=== PATIENT | female | born 1980 | race African-American/Black ===

== ENCOUNTER 2016-10-26 10:53 | Emergency (ER) | payer BC ==
--- NOTE | 2016-10-26 11:23 | ER Document Report ---
ED General - General Chief Complaint: Flank Pain Stated Complaint: URINARY PAIN, BACK PAIN TRAVEL OUTSIDE OF THE [place] IN LAST 30 DAYS: No - HPI Patient complains to provider of: urinary frequency back pain Notes: Patient coming over urine infection back pain states her urine is very dark possible blood-tinged. Patient denies history kidney stones. Patient states similar to urinary tract infections in the past. Denies fevers chills denies any vaginal bleeding vaginal discharge. - Related Data Allergies/Adverse Reactions: No Known Allergies Allergy (Unverified 10/26/16 11:11) Past Medical History - Social History Smoking Status: Unknown if Ever Smoked Family History: Reviewed & Not Pertinent Patient has suicidal ideation: No Patient has homicidal ideation: No Renal/ Medical History: Denies: Hx Peritoneal Dialysis Review of Systems - Review of Systems Constitutional: No symptoms reported EENT: No symptoms reported Cardiovascular: No symptoms reported Respiratory: No symptoms reported Gastrointestinal: No symptoms reported Genitourinary: Dysuria Female Genitourinary: No symptoms reported Musculoskeletal: No symptoms reported Skin: No symptoms reported Hematologic/Lymphatic: No symptoms reported Neurological/Psychological: No symptoms reported -: Yes All other systems reviewed and negative Physical Exam - Vital signs Vitals: Temp Pulse Resp BP Pulse Ox 99 F 65 16 115/62 100 10/26/16 11:10 10/26/16 11:10 10/26/16 11:10 10/26/16 11:10 10/26/16 11:10 Interpretation: Normal - General General appearance: Appears well, Alert - HEENT Head: Normocephalic, Atraumatic Eyes: Normal Pupils: PERRL - Respiratory Respiratory status: No respiratory distress Chest status: Nontender Breath sounds: Normal Chest palpation: Normal - Cardiovascular Rhythm: Regular Heart sounds: Normal auscultation Murmur: No - Abdominal Inspection: Normal Distension: No distension Bowel sounds: Normal Tenderness: Nontender Organomegaly: No organomegaly - Back Back: Normal, Nontender - Extremities General upper extremity: Normal inspection, Nontender, Normal color, Normal ROM , Normal temperature General lower extremity: Normal inspection, Nontender, Normal color, Normal ROM , Normal temperature, Normal weight bearing. No: Jany's sign - Neurological Neuro grossly intact: Yes Cognition: Normal Orientation: AAOx4 Lauri Coma Scale Eye Opening: Spontaneous [place] Coma Scale Verbal: Oriented [place] Coma Scale Motor: Obeys Commands Lauri Coma Scale Total: 15 Speech: Normal Motor strength normal: LUE, RUE, LLE, RLE Sensory: Normal - Psychological Associated symptoms: Normal affect, Normal mood - Skin Skin Temperature: Warm Skin Moisture: Dry Skin Color: Normal Course - Re-evaluation Re-evalutation: 10/26/16 12:36 No signs of infection. CT scan is negative. No clear etiology for the patient' s symptoms. Encouraged follow-up primary care physician. - Vital Signs Vital signs: Temp Pulse Resp BP Pulse Ox 99 F 65 16 115/62 100 10/26/16 11:10 10/26/16 11:10 10/26/16 11:10 10/26/16 11:10 10/26/16 11:10 - Laboratory Laboratory results interpreted by me: 10/26/16 10:55 Urine Blood LARGE H Discharge - Discharge Clinical Impression: Flank pain Condition: Good Instructions: Oral Narcotic Medication ([facility]), Flank Pain ([facility]), Hematuria ([facility]) Additional Instructions: Your urinalysis does not show any signs of infection today we will seen your urine for culture will take approximately 48-72 hours with that result to return back. Please make sure we have good content information so he may call you if you may need antibiotic. Please make should she follow-up with your primary care physician in 3-5 days. Your CAT scan does not show any signs of kidney stone. There is a possibility she may have passed a stone earlier this morning and is still having a little blood in urine. Return to the ER symptoms worsen. Prescriptions: Tramadol HCl [Ultram 50 mg Tablet] 50 mg PO ASDIR PRN #14 tablet PRN Reason: Forms: Return to Work
[2016-10-26 11:33] LABS: APPEARANCE,URINE SLIGHTLY-CLOUDY; BILIRUBIN,URINE NEGATIVE (NEGATIVE); GLUCOSE, URINE NEGATIVE (NEGATIVE); KETONES,URINE NEGATIVE (NEGATIVE); LEUKOCYTE ESTERASE,URINE NEGATIVE (NEGATIVE); NITRITE,URINE NEGATIVE (NEGATIVE); PROTEIN,URINE NEGATIVE (NEGATIVE); URINE SPECIFIC GRAVITY 1.004; UROBILINOGEN,URINE NEGATIVE mg/dL (<2.0)
[2016-10-26 12:39] VITALS: BP 124/71
== END 2016-10-26 12:35 | disposition home or self-care (01) ==
LOC: EDSEX 10:53 → ER 10:53
DX: R10.9 Unspecified abdominal pain (principal); R35.0 Frequency of micturition; R30.0 Dysuria; R39.89 Other symptoms and signs involving the genitourinary system; Z87.440 Personal history of urinary (tract) infections
CPT/HCPCS: 76380; 81001; 81025; 87086; 99284